=== PATIENT | male | born 1975 | race Caucasian/White ===

== ENCOUNTER 2018-04-10 00:03 | Emergency (ER) | payer BC, SELFPAY ==
[2018-04-10 01:00] LABS: Absolute Lymphocytes (CBC) 1.9 K/uL (0.7-4.9); Absolute Neutrophil 10.9 K/uL (1.8-8.0); Basophils % 0.5 % (0-1.3); Eosinophils % 0.8 % (0-4.4); Hematocrit 45.1 % (39.6-49.0); Lymphocytes % 13.7 % (15.3-44.8); MPV 9.7 fL (7.6-11.3); Monocytes % 7.5 % (3.3-12.3); RBC Red Blood Cell Count 4.69 M/uL (4.33-5.43)
[2018-04-10] MEDS ORDERED: NA CHLORIDE 0.9% 100 ML IV ONE (01:06)
[2018-04-10] MEDS ORDERED: MULTIVITAMINS 10 ML VIAL (INJ) IV ONE (01:06)
[2018-04-10] MEDS ORDERED: THIAMINE 200 MG/2 ML INJ ONE (01:06)
[2018-04-10] MEDS ORDERED: LORazepam 2 MG/ML VIAL ONE (01:06)
[2018-04-10] MEDS ORDERED: FOLIC ACID 5 MG/ML VIAL ONE (01:08)
[2018-04-10] MEDS ORDERED: METOPROLOL TARTRATE 5 MG/5 ML INJ IV ONE (01:11)
[2018-04-10 01:20] LABS: ALT/SGPT 29 U/L (12-78); AST/SGOT 22 U/L (15-37); Albumin 3.8 g/dL (3.4-5.0); Alkaline Phosphatase 128 U/L (45-117); BUN Blood Urea Nitrogen 14 mg/dL (7-18); Bicarbonate 25 mmol/L (21-32); Bilirubin Direct 0.2 mg/dL (0-0.2); Bilirubin Total 0.8 mg/dL (0.2-1.0); Glucose Level 103 mg/dL (74-106); Magnesium 1.9 mg/dL (1.8-2.4); NT PRO-BNP 23 pg/mL (<125); Potassium 3.4 mmol/L (3.5-5.1); Protein, Total 7.7 g/dL (6.4-8.2); Sodium Level 137 mmol/L (136-145); Troponin (Emerg Dept Use Only) < 0.02 ng/mL (0.0-0.045)
[2018-04-10] MEDS ORDERED: POTASSIUM CL SA 10 MEQ TAB PO ONE (03:08)
[2018-04-10 04:48] LABS: Barbiturates NEGATIVE (NEGATIVE); Benzodiazepines NEGATIVE (NEGATIVE); Cocaine NEGATIVE (NEGATIVE); METHAMPHETAM NEGATIVE (NEGATIVE); Methadone NEGATIVE (NEGATIVE); Opiates NEGATIVE (NEGATIVE); Phencyclidine NEGATIVE (NEGATIVE); THC Cannibis NEGATIVE (NEGATIVE)
--- NOTE | 2018-04-10 05:46 | EDPHYS ---
Physician Documentation [facility] Name: Simon Renteria Age: 42 yrs Sex: Male : 1975 Arrival Date: 04/10/2018 Time: 00:03 Bed 6 Private MD: ED Physician Yogesh Black HPI: 04/10 02:04 This 42 yrs old Male presents to ER via Ambulatory with complaints of Anxiety.pkl 02:04 Patient admits to drinking heavily yesterday and now is having panic attacks. Onset: pkl The symptoms/episode began/occurred today. The patient has experienced similar episodes in the past, a few times. Historical: - Allergies: 00:34 No Known Allergies; tl2 - Home Meds: 00:34 None [Active]; tl2 - PMHx: 00:34 None; tl2 - PSHx: 00:34 None; tl2 - Immunization history:: Adult Immunizations up to date. - Social history:: Smoking status: Patient uses tobacco products, smokes one pack cigarettes per day. Patient uses alcohol, on a daily basis. - Ebola Screening: : No symptoms or risks identified at this time. ROS: 02:04 Eyes: Negative for injury, pain, redness, and discharge, ENT: Negative for injury, pkl pain, and discharge, Neck: Negative for injury, pain, and swelling. 02:04 Cardiovascular: Positive for palpitations. 02:04 Respiratory: Negative for cough, shortness of breath. 02:04 Abdomen/GI: Negative for abdominal pain, nausea, vomiting, and diarrhea. 02:04 Back: Negative for acute changes. 02:04 : Negative for urinary symptoms. 02:04 MS/extremity: Negative for acute changes. 02:04 Skin: Negative for rash. 02:04 Neuro: Negative for altered mental status. 02:04 Psych: Positive for anxiety, Negative for auditory hallucinations, visual hallucinations, homicidal ideation. Exam: 02:04 Head/Face: Normocephalic, atraumatic. Eyes: Pupils equal round and reactive to light, pkl extra-ocular motions intact. Lids and lashes normal. Conjunctiva and sclera are non-icteric and not injected. Cornea within normal limits. Periorbital areas with no swelling, redness, or edema. ENT: Nares patent. No nasal discharge, no septal abnormalities noted. Tympanic membranes are normal and external auditory canals are clear. Oropharynx with no redness, swelling, or masses, exudates, or evidence of obstruction, uvula midline. Mucous membranes moist. Neck: Trachea midline, no thyromegaly or masses palpated, and no cervical lymphadenopathy. Supple, full range of motion without nuchal rigidity, or vertebral point tenderness. No Meningismus. Chest/axilla: Normal chest wall appearance and motion. Nontender with no deformity. No lesions are appreciated. Cardiovascular: Regular rate and rhythm with a normal S1 and S2. No gallops, murmurs, or rubs. Normal PMI, no JVD. No pulse deficits. Respiratory: Lungs have equal breath sounds bilaterally, clear to auscultation and percussion. No rales, rhonchi or wheezes noted. No increased work of breathing, no retractions or nasal flaring. Abdomen/GI: Soft, non-tender, with normal bowel sounds. No distension or tympany. No guarding or rebound. No evidence of tenderness throughout. Back: No spinal tenderness. No costovertebral tenderness. Full range of motion. Skin: Warm, dry with normal turgor. Normal color with no rashes, no lesions, and no evidence of cellulitis. MS/ Extremity: Pulses equal, no cyanosis. Neurovascular intact. Full, normal range of motion. Neuro: Awake and alert, GCS 15, oriented to person, place, time, and situation. Cranial nerves II-XII grossly intact. Motor strength 5/5 in all extremities. Sensory grossly intact. Cerebellar exam normal. Normal gait. 02:04 Psych: Behavior/mood is anxious, Patient has no thoughts/intents to harm self or others. Vital Signs: 00:17 BP 173 / 118; Pulse 112; Resp 22; Temp 98.9(O); Pulse Ox 99% on R/A; jb5 00:34 BP 173 / 109; Pulse 111; Resp 18; Pulse Ox 97% on R/A; tl2 01:01 BP 170 / 114; Pulse 108; Resp 18; Pulse Ox 100% on R/A; mt 01:26 BP 168 / 111; Pulse 83; Resp 17; Pulse Ox 97% on R/A; Pain 0/10; tl1 01:27 BP 154 / 105; Pulse 81; Resp 17; Pulse Ox 97% on R/A; tl1 01:51 BP 145 / 96; Pulse 81; Resp 18; Pulse Ox 97% on R/A; Pain 0/10; tl1 02:50 BP 124 / 90; Pulse 74; Resp 18; Pulse Ox 100% on R/A; tl2 MDM: 00:23 Patient medically screened. pkl 05:44 Data reviewed: vital signs, nurses notes, lab test result(s), radiologic studies, plain pkl films. 04/10 00:24 Order name: Basic Metabolic Panel; Complete Time: 02:55 pkl 04/10 00:24 Order name: CBC with Diff; Complete Time: 02:55 pkl 04/10 00:24 Order name: LFT's; Complete Time: 02:55 pkl 04/10 00:24 Order name: Magnesium; Complete Time: 02:55 pkl 04/10 00:24 Order name: NT PRO-BNP; Complete Time: 02:55 pkl 04/10 00:24 Order name: PT-INR; Complete Time: 02:55 pkl 04/10 00:24 Order name: Troponin (emerg Dept Use Only); Complete Time: 02:55 pkl 04/10 00:24 Order name: XRAY Chest (1 view) pkl 04/10 00:24 Order name: ETOH Level; Complete Time: 02:55 pkl 04/10 00:24 Order name: UDS; Complete Time: 04:50 pkl 04/10 00:24 Order name: EKG; Complete Time: 00:25 pkl 04/10 00:24 Order name: Cardiac monitoring; Complete Time: 00:57 pkl 04/10 00:24 Order name: EKG - Nurse/Tech; Complete Time: 00:57 pkl 04/10 00:24 Order name: IV Saline Lock; Complete Time: 00:57 pkl 04/10 00:24 Order name: Labs collected and sent; Complete Time: 00:57 pkl 04/10 00:24 Order name: O2 Per Protocol; Complete Time: 00:37 pkl 04/10 00:24 Order name: O2 Sat Monitoring; Complete Time: 00:37 pkl Administered Medications: 01:08 Drug: Banana Bag - (NS 0.9% 1000 ml, foLIC Acid 1 mg, Thiamine 100 mg, Multivitamin 1 tl2 amp) Route: IV; Rate: calculated rate; Infused Over: 4 hrs; Site: left antecubital; 05:12 Follow up: IV Status: Completed infusion tl1 01:09 Drug: Lopressor 5 mg Route: IVP; Site: left antecubital; tl2 01:27 Follow up: BP 154 / 105; Pulse 81 bpm; Resp 17 bpm; Pulse Ox 97% RA tl1 01:09 Drug: Ativan 1 mg Route: IVP; Site: left antecubital; tl2 02:57 Follow up: Response: No adverse reaction; Marked relief of symptoms; Anxiety decreased tl1 03:00 Drug: K-Dur 20 mEq Route: PO; tl1 05:11 Follow up: Response: No adverse reaction; No change in condition tl1 Disposition: 04/10/18 05:45 Discharged to Home. Impression: Anxiety disorder. - Condition is Stable. - Prescriptions for Ativan 1 mg Oral Tablet - take 1 tablet by ORAL route 2 times per day As needed; 10 tablet. - Medication Reconciliation Form, Thank You Letter, Antibiotic Education, Prescription Opioid Use form. - Follow up: Private Physician; When: 2 - 3 days; Reason: Re-evaluation by your physician. - Problem is new. - Symptoms have improved. Signatures: Dispatcher [employer] EDMS Yogesh Black MD MD pkl Swapna Stafford RN RN tl1 Myra Sims RN RN tl2 Corrections: (The following items were deleted from the chart) 06:13 05:45 04/10/2018 05:45 Discharged to Home. Impression: Anxiety disorder. Condition is tl2 Stable. Forms are Medication Reconciliation Form, Thank You Letter, Antibiotic Education, Prescription Opioid Use. Follow up: Private Physician; When: 2 - 3 days; Reason: Re-evaluation by your physician. Problem is new. Symptoms have improved. pkl
--- NOTE | 2018-04-10 05:46 | ER ---
Nurse's Notes [facility] Name: Simon Renteria Age: 42 yrs Sex: Male : 1975 Arrival Date: 04/10/2018 Time: 00:03 Bed 6 Private MD: Diagnosis: Anxiety disorder Presentation: 04/10 00:30 Presenting complaint: Patient states: Multiple panic attacks started this evening. Pt tl2 has a history of alcohol abuse and anxiety. Transition of care: patient was not received from another setting of care. Onset of symptoms was April 09, 2018 at 22:00. Risk Assessment: Do you want to hurt yourself or someone else? Patient reports no desire to harm self or others. Initial Sepsis Screen: Does the patient meet any 2 criteria? No. Patient's initial sepsis screen is negative. Does the patient have a suspected source of infection? No. Patient's initial sepsis screen is negative. Care prior to arrival: None. 00:30 Method Of Arrival: Ambulatory tl2 00:30 Acuity: PATRICIA 3 tl2 Triage Assessment: 00:34 General: Appears in no apparent distress. comfortable, Behavior is calm, cooperative, tl2 appropriate for age. General: Smells of alcohol. Pain: Denies pain. Neuro: Level of Consciousness is awake, alert, obeys commands, Oriented to person, place, time, situation. Cardiovascular: Denies chest pain. Respiratory: Airway is patent Respiratory effort is even, unlabored, Respiratory pattern is regular, symmetrical. GI: No signs and/or symptoms were reported involving the gastrointestinal system. : No signs and/or symptoms were reported regarding the genitourinary system. Derm: Skin is pink, warm \T\ dry. Historical: - Allergies: 00:34 No Known Allergies; tl2 - Home Meds: 00:34 None [Active]; tl2 - PMHx: 00:34 None; tl2 - PSHx: 00:34 None; tl2 - Immunization history:: Adult Immunizations up to date. - Social history:: Smoking status: Patient uses tobacco products, smokes one pack cigarettes per day. Patient uses alcohol, on a daily basis. - Ebola Screening: : No symptoms or risks identified at this time. Screenin:36 Abuse screen: Denies threats or abuse. Nutritional screening: No deficits noted. tl2 Tuberculosis screening: No symptoms or risk factors identified. Fall Risk None identified. Assessment: 00:34 General: see triage assessment. tl2 03:14 Reassessment: Patient and/or family updated on plan of care and expected duration. Pain tl1 level reassessed. Patient is alert, oriented x 3, equal unlabored respirations, skin warm/dry/pink. Patient denies pain at this time. Patient states feeling better. Patient states symptoms have improved. 06:10 Reassessment: Patient appears in no apparent distress at this time. Patient and/or tl2 family updated on plan of care and expected duration. Pain level reassessed. Patient is alert, oriented x 3, equal unlabored respirations, skin warm/dry/pink. Pt is awake and alert and states he feels much better, approved for discharge. Pt verbalized understanding of discharge instructions, need for follow up and prescription usage. Vital Signs: 00:17 BP 173 / 118; Pulse 112; Resp 22; Temp 98.9(O); Pulse Ox 99% on R/A; jb5 00:34 BP 173 / 109; Pulse 111; Resp 18; Pulse Ox 97% on R/A; tl2 01:01 BP 170 / 114; Pulse 108; Resp 18; Pulse Ox 100% on R/A; mt 01:26 BP 168 / 111; Pulse 83; Resp 17; Pulse Ox 97% on R/A; Pain 0/10; tl1 01:27 BP 154 / 105; Pulse 81; Resp 17; Pulse Ox 97% on R/A; tl1 01:51 BP 145 / 96; Pulse 81; Resp 18; Pulse Ox 97% on R/A; Pain 0/10; tl1 02:50 BP 124 / 90; Pulse 74; Resp 18; Pulse Ox 100% on R/A; tl2 ED Course: 00:03 Patient arrived in ED. ds1 00:23 Yogesh Black MD is Attending Physician. pkl 00:33 Triage completed. tl2 00:34 Arm band placed on right wrist. tl2 00:36 Patient has correct armband on for positive identification. Bed in low position. Call tl2 light in reach. Side rails up X 1. 00:45 Swapna Stafford RN is Primary Nurse. tl1 01:04 Inserted saline lock: 20 gauge in left antecubital area, using aseptic technique. Blood tl2 collected. placed by WILY Barcenas. 01:10 X-ray completed. Portable x-ray completed in exam room. Patient tolerated procedure sg4 well. 01:12 XRAY Chest (1 view) In Process Unspecified. EDMS 03:14 Resting quietly. Appears to be sleeping. tl1 06:10 No provider procedures requiring assistance completed. IV discontinued, intact, tl2 bleeding controlled, No redness/swelling at site. Pressure dressing applied. Administered Medications: 01:08 Drug: Banana Bag - (NS 0.9% 1000 ml, foLIC Acid 1 mg, Thiamine 100 mg, Multivitamin 1 tl2 amp) Route: IV; Rate: calculated rate; Infused Over: 4 hrs; Site: left antecubital; 05:12 Follow up: IV Status: Completed infusion tl1 01:09 Drug: Lopressor 5 mg Route: IVP; Site: left antecubital; tl2 01:27 Follow up: BP 154 / 105; Pulse 81 bpm; Resp 17 bpm; Pulse Ox 97% RA tl1 01:09 Drug: Ativan 1 mg Route: IVP; Site: left antecubital; tl2 02:57 Follow up: Response: No adverse reaction; Marked relief of symptoms; Anxiety decreased tl1 03:00 Drug: K-Dur 20 mEq Route: PO; tl1 05:11 Follow up: Response: No adverse reaction; No change in condition tl1 Outcome: 05:45 Discharge ordered by . jovon 06:10 Discharged to home ambulatory. tl2 06:10 Condition: stable 06:10 Discharge instructions given to patient, Instructed on discharge instructions, follow up and referral plans. medication usage, Demonstrated understanding of instructions, follow-up care, medications, Prescriptions given X 1. 06:13 Patient left the ED. tl2 Signatures: Dispatcher [employer] EDMS Yogesh Black MD MD pkl Sanford, Demi ds1 Swapna Stafford RN RN tl1 Myra Sims RN RN tl2 Maryuri Olivas Mor[place] mt Garcia, Susana sg4
--- NOTE | 2018-04-10 10:40 | RAD REPORT ---
EXAM DESCRIPTION: Oj Single View04/10/2018 1:11 am CLINICAL HISTORY: Palpitations COMPARISON: none FINDINGS: The lungs appear clear of acute infiltrate. The heart is normal size IMPRESSION: No acute abnormalities displayed
--- NOTE | 2018-04-10 13:54 | EKG ---
Test Date: 2018-04-10 Test Time: 00:51:30 Bag Cutter: RANJANA MEASUREMENT RESULTS: Intervals: Rate: 109 MA: 172 QRSD: 86 QT: 352 QTc: 474 [place]: P: 59 MA: 172 QRS: 17 T: 39 INTERPRETIVE STATEMENTS: Sinus tachycardia Otherwise normal ECG No previous ECG available for comparison Electronically Signed On 04-10-18 13:53:41 SANDING MACHINE OPERATOR OR TENDER by Anil Castro
== END 2018-04-10 06:13 | disposition home or self-care (01) ==
LOC: ER 00:03
DX: F41.9 Anxiety disorder, unspecified (principal); F17.210 Nicotine dependence, cigarettes, uncomplicated
CPT/HCPCS: 36415; 71045; 80048; 80076; 80307; 80320; 83735; 83880; 84484; 85025; 85610; 93005; 96365; 96366; 96375; 99284; J3411